=== PATIENT | male | born 1950 | race Caucasian/White ===

== ENCOUNTER 2017-08-20 08:38 | Day surgery (SDC) | payer MEDICARE ==
[~2017-08-20] VITALS: Ht 165.1 cm; Wt 74.8 kg
[~2017-08-20 08:38] MED LIST: ALLO300T2 PO; ASPI-1197 PO; ATOR40TA71 PO; CHOL200013 PO; FISH1CAP20 PO; SODIUM CHLORIDE 0.9% 1000ML 1,000 ML IV ONE; TAMS0.4C32 PO
[2017-08-20 09:04] VITALS: BP 136/70
[2017-08-20] MEDS ORDERED: MEPERIDINE-PF 50 MG/ML SYG ONE (10:51)
[2017-08-20] MEDS ORDERED: MIDAZOLAM HCL 1 MG/ML 2ML VIAL ONE (10:52)
[2017-08-20 11:18] VITALS: BP 119/65
== END 2017-08-20 12:15 | disposition home or self-care (01) ==
LOC: ENDO 08:38 → DAH 08:38 → ENDO 12:15
PROVIDERS: ATTEND Internal Medicine Gastroenterology
DX: Z09 Encounter for follow-up examination after completed treatment for conditions other than malignant neoplasm (principal); I25.10 Atherosclerotic heart disease of native coronary artery without angina pectoris; M10.9 Gout, unspecified; Z95.1 Presence of aortocoronary bypass graft; Z82.49 Family history of ischemic heart disease and other diseases of the circulatory system; Z79.82 Long term (current) use of aspirin; Z86.010 Personal history of colon polyps
CPT/HCPCS: 99156; 99157; G0105; A4606; J2175; J2250; J7030

== ENCOUNTER → 2022-07-17 | Outpatient (CLI) | payer MEDICARE, OTHER ==
[~2022-07-17] MED LIST changes: +IOHEXOL 350 MG/ML 100ML INFUS..BTL IV ONE; -SODIUM CHLORIDE 0.9% 1000ML 1,000 ML IV ONE
== END | disposition home or self-care (01) ==
LOC: RAH 08:00
PROVIDERS: ATTEND Internal Medicine Cardiovascular Disease
DX: I20.9 Angina pectoris, unspecified (principal)
CPT/HCPCS: 75574; Q9967

== ENCOUNTER 2023-07-09 05:57 | Day surgery (SDC) | payer MEDICARE ==
[2023-07-04 09:54] LABS: BASOPHILS # (AUTO) 0.01 K/uL (0.00-0.20); BASOPHILS % (AUTO) 0.1 % (0.0-5.0); IMMATURE GRANULOCYTE ABSOLUTE 0.07 K/uL (0-1); LYMPHOCYTES # (AUTO) 0.7 K/uL (1.0-4.8); LYMPHOCYTES % (AUTO) 4.7 % (21.0-51.0); MEAN CORPUSCULAR HEMOGLOBIN 28.4 pg (27.0-33.0); MEAN CORPUSCULAR HGB CONC 32.7 g/dL (32.0-36.0); MEAN CORPUSCULAR VOLUME 86.8 fL (79-99); MONOCYTES # (AUTO) 0.4 K/uL (0.1-1.0); NEUTROPHILS # (AUTO) 12.7 K/uL (1.8-7.7); NEUTROPHILS % (AUTO) 91.7 % (40.0-77.0); PLATELET COUNT (AUTO) 170 K/uL (130-400); RED BLOOD CELL COUNT(AUTO) 5.07 MIL/uL (4.50-6.20); RED CELL DISTRIBUTION WIDTH 13.4 % (11.0-15.5); WHITE BLOOD COUNT (AUTO) 13.8 K/uL (4.8-10.8)
[2023-07-04 09:55] VITALS: BP 140/71; PULSE 77; RESP 18
[2023-07-04 10:00] LABS: CREATININE 1.4 mg/dL (0.5-1.5); POTASSIUM 4.1 mmol/L (3.5-5.1)
[2023-07-04 10:03] LABS: INR < 0.93 (0.85-1.15); PROTHROMBIN TIME 10.4 SEC (9.6-11.6)
[2023-07-04 10:04] LABS: PARTIAL THROMBOPLASTIN TIME 27.7 SEC (26.3-35.5)
[2023-07-04 10:19] LABS: BAND NEUTROPHILS % (MANUAL) 11 % (0-2); LYMPHOCYTES % (MANUAL) 6 % (22-44); MAN.DIFF COMMENT-IMPRESSION MANUAL DIFFERENTIAL; MONOCYTES % (MANUAL) 3 % (2-9); PLATELET MORPHOLOGY COMMENT ADEQUATE; SEGMENTED NEUTROPHILS % 80 % (40-70); TOTAL CELLS COUNTED 100; WBC MORPHOLOGY CONSISTENT W/DIFF
[2023-07-09] VITALS (17 sets, daily range): BP systolic 128–196; BP diastolic 59–101; PULSE 59–71; RESP 14–20
[~2023-07-09] VITALS: Ht 167.6 cm; Wt 71.8 kg
[~2023-07-09 05:57] MED LIST changes: -ALLO300T2 PO; -ASPI-1197 PO; -ATOR40TA71 PO; -CHOL200013 PO; +EZET10TA48 PO; -FISH1CAP20 PO; -IOHEXOL 350 MG/ML 100ML INFUS..BTL IV ONE; +ROSU10TA28 PO
[2023-07-09] MEDS ORDERED: LACTATED RINGERS 1000ML 1,000 ML IV ONE (06:51)
[2023-07-09] MEDS ORDERED: CEFAZOLIN SODIUM 2 GM VIAL ONE (06:51)
[2023-07-09] MEDS ORDERED: SUCCINYLCHOLINE CHLORIDE 20 MG/ML 10 ML VIAL ONE (07:16)
[2023-07-09] MEDS ORDERED: PROPOFOL 10 MG/ML 20ML VIAL IV ONE (07:16)
[2023-07-09] MEDS ORDERED: MIDAZOLAM HCL 1 MG/ML 2ML VIAL ONE (07:16)
[2023-07-09] MEDS ORDERED: ROCURONIUM 10MG/1ML SYR 10 MG/ML ML ONE (07:17)
[2023-07-09] MEDS ORDERED: FENTANYL CITRATE PF 50 MCG/1 ML 2ML VIAL ONE (07:17)
[2023-07-09] MEDS ORDERED: BUPIVACAINE/PF 0.5% 30ML VIAL ONE (08:00)
[2023-07-09] MEDS ORDERED: BUPIVACAINE/EPI/PF 0.5% 30ML VIAL IJ ONE (08:00)
[2023-07-09] MEDS ORDERED: EPHEDRINE SULFATE 50 MG/ML AMPULE ONE (08:02)
[2023-07-09] MEDS ORDERED: GLYCOPYRROLATE 1 MG/5 ML SYRINGE ONE (08:06)
[2023-07-09] MEDS ORDERED: DOCU-116 PO (08:31)
[2023-07-09] MEDS ORDERED: TRAM50TA4 PO (08:31)
[2023-07-09] MEDS ORDERED: GABA-529 PO (08:31)
[2023-07-09] MEDS ORDERED: METH-662 PO (08:31)
[2023-07-09] MEDS ORDERED: NEOSTIGMINE 5MG/5ML SYR IV ONE (08:36)
[2023-07-09] MEDS ORDERED: HYDRALAZINE 20MG/ML VIAL ONE (09:08)
[2023-07-09] MEDS ORDERED: MEPERIDINE-PF 25 MG/ML SYG ONE (09:14)
[2023-07-13] MEDS ORDERED: TAMS-1 PO (00:47)
== END 2023-07-09 10:15 | disposition home or self-care (01) ==
LOC: DAH 05:57
PROVIDERS: ATTEND Surgery
DX: K43.6 Other and unspecified ventral hernia with obstruction, without gangrene (principal); I25.10 Atherosclerotic heart disease of native coronary artery without angina pectoris; K21.9 Gastro-esophageal reflux disease without esophagitis; M10.9 Gout, unspecified; N40.0 Benign prostatic hyperplasia without lower urinary tract symptoms; E66.9 Obesity, unspecified; Z80.9 Family history of malignant neoplasm, unspecified; Z72.89 Other problems related to lifestyle; Z82.49 Family history of ischemic heart disease and other diseases of the circulatory system; Z98.890 Other specified postprocedural states; Z79.01 Long term (current) use of anticoagulants; Z79.899 Other long term (current) drug therapy; Z95.1 Presence of aortocoronary bypass graft
CPT/HCPCS: 80048; 85025; 85610; 85730; 36415; 49592; A6260; A4663; J7030 ×2; J7120; J3010; J3490 ×3; J2710; J0330; J0360; J2250; J2704; J0665; J2175; J1644; J0690; C1769 ×2; A4649 ×2; A4930 ×2; A4215; A4223; A4222; A4221; A4600

== ENCOUNTER 2024-03-03 10:52 | Emergency (ER) | payer MEDICARE ==
[~2024-03-03] VITALS: Ht 167.6 cm; Wt 73.5 kg
[~2024-03-03 10:52] MED LIST changes: +DOCU-116 PO; +GABA-529 PO; +METH-662 PO; -ROSU10TA28 PO; +ROSU10TA72 PO; +TAMS-1 PO; +TRAM50TA4 PO
[2024-03-03 11:33] LABS: BASOPHILS # (AUTO) 0.02 K/uL (0.00-0.20); BASOPHILS % (AUTO) 0.3 % (0.0-5.0); EOSINOPHILS # (AUTO) 0.31 K/uL (0.00-0.70); EOSINOPHILS % (AUTO) 5.1 % (0.0-8.0); HEMATOCRIT 44.4 % (42-54); IMMATURE GRANULOCYTE ABSOLUTE 0.01 K/uL (0-1); LYMPHOCYTES # (AUTO) 1.8 K/uL (1.0-4.8); LYMPHOCYTES % (AUTO) 28.7 % (21.0-51.0); MEAN CORPUSCULAR HEMOGLOBIN 28.2 pg (27.0-33.0); MEAN CORPUSCULAR HGB CONC 33.6 g/dL (32.0-36.0); MEAN CORPUSCULAR VOLUME 83.9 fL (79-99); MONOCYTES # (AUTO) 0.6 K/uL (0.1-1.0); MONOCYTES % (AUTO) 10.5 % (3.0-13.0); NEUTROPHILS # (AUTO) 3.4 K/uL (1.8-7.7); NEUTROPHILS % (AUTO) 55.2 % (40.0-77.0); PLATELET COUNT (AUTO) 153 K/uL (130-400); RED BLOOD CELL COUNT(AUTO) 5.29 MIL/uL (4.50-6.20); RED CELL DISTRIBUTION WIDTH 13.5 % (11.0-15.5); WHITE BLOOD COUNT (AUTO) 6.1 K/uL (4.8-10.8)
[2024-03-03 11:45] LABS: CREATININE 1.3 mg/dL (0.5-1.3); POTASSIUM 4.5 mmol/L (3.5-5.1)
[2024-03-03 11:54] LABS: ALBUMIN 3.9 g/dL (3.5-5.0); BILIRUBIN,TOTAL 0.7 mg/dL (0.2-1.0); MAGNESIUM 2.2 mg/dL (1.80-2.40); TOTAL PROTEIN, SERUM 6.9 g/dL (6.0-8.3)
[2024-03-03 13:02] VITALS: BP 124/65; PULSE 64; RESP 17; O2SAT 96
== END 2024-03-03 13:03 | disposition home or self-care (01) ==
LOC: EDH 10:54
DX: R07.89 Other chest pain (principal); E78.00 Pure hypercholesterolemia, unspecified; N41.9 Inflammatory disease of prostate, unspecified; Z79.899 Other long term (current) drug therapy
CPT/HCPCS: 36415; 71045; 80053; 83735; 84484; 85025; 93005